=== PATIENT | female | born 1985 | race Caucasian/White ===

== ENCOUNTER → 2019-05-27 13:03 | Outpatient (BNVA) | payer OTHER, SELFPAY | PROVIDERS: Family Provider Family Medicine; Visit Provider Nurse Practitioner Women's Health | DX: O09.291 Supervision of pregnancy with other poor reproductive or obstetric history, first trimester (principal) | CPT/HCPCS: 76801 ==

== ENCOUNTER → 2019-06-14 14:43 | Outpatient (BNVA) | payer OTHER, SELFPAY | PROVIDERS: Family Provider Family Medicine; Visit Provider Obstetrics & Gynecology | DX: Z34.81 Encounter for supervision of other normal pregnancy, first trimester (principal); N89.8 Other specified noninflammatory disorders of vagina; O26.891 Other specified pregnancy related conditions, first trimester | CPT/HCPCS: 80053; 80307; 84315; 85027; 86592; 86762; 86803; 86850; 86900; 87210; 87340; 87491; 87591; 87806; 88175 ==

== ENCOUNTER → 2019-06-21 11:16 | Outpatient (BNVA) | payer OTHER, SELFPAY | PROVIDERS: Family Provider Family Medicine; Visit Provider Obstetrics & Gynecology | DX: O09.291 Supervision of pregnancy with other poor reproductive or obstetric history, first trimester (principal) | CPT/HCPCS: 82950 ==

== ENCOUNTER → 2019-08-09 10:06 | Outpatient (BNVA) | payer OTHER, SELFPAY | PROVIDERS: Family Provider Family Medicine; Visit Provider Obstetrics & Gynecology | DX: Z34.92 Encounter for supervision of normal pregnancy, unspecified, second trimester (principal); Z3A.20 20 weeks gestation of pregnancy | CPT/HCPCS: 76805 ==

== ENCOUNTER → 2019-09-30 14:37 | Outpatient (BNVA) | payer OTHER, SELFPAY | PROVIDERS: Family Provider Family Medicine; Visit Provider Nurse Practitioner Women's Health | DX: Z34.81 Encounter for supervision of other normal pregnancy, first trimester (principal) | CPT/HCPCS: 82950; 84315; 85027 ==

== ENCOUNTER → 2019-10-06 08:09 | Outpatient (BNVA) | payer OTHER, SELFPAY | PROVIDERS: Family Provider Family Medicine; Visit Provider Nurse Practitioner Women's Health | DX: R73.09 Other abnormal glucose (principal) | CPT/HCPCS: 82951; 82952 ==

== ENCOUNTER → 2019-11-25 15:52 | Outpatient (BNVA) | payer OTHER, SELFPAY | PROVIDERS: Family Provider Family Medicine; Visit Provider Obstetrics & Gynecology | DX: Z34.81 Encounter for supervision of other normal pregnancy, first trimester (principal) | CPT/HCPCS: 81000; 84315; 87081 ==

== ENCOUNTER → 2019-12-09 16:16 | Outpatient (BNVA) | payer OTHER, SELFPAY | PROVIDERS: Family Provider Family Medicine; Visit Provider Obstetrics & Gynecology | DX: Z11.59 Encounter for screening for other viral diseases (principal) | CPT/HCPCS: 84315; 87635 ==

== ENCOUNTER 2019-12-23 21:00 | Inpatient (IN) | payer OTHER, SELFPAY ==
[2019-12-23] VITALS (10 sets, daily range): BP systolic 100–135; BP diastolic 57–78; PULSE 62–80; RESP 16–18; TEMP 37; BMI 27.4
[2019-12-23 21:24] LABS: Nitrazine Paper, PH Negative
[2019-12-23 21:37] LABS: Basophils % 0.1 %; Eosinophils # 0.2 10^3/uL (0.0-0.8); Eosinophils % 1.9 %; Hematocrit 36.6 % (37.0-47.0); Hemoglobin 12.2 g/dL (11.5-15.3); Lymphocytes # 2.2 10^3/uL (0.8-4.8); Lymphocytes % 21.9 %; Mean Corpuscular HGB Conc 33.3 g/dL (30.0-36.0); Mean Corpuscular Hemoglobin 31.3 pg (28.0-34.0); Mean Corpuscular Volume 93.8 fL (81-99); Monocytes # 1.1 10^3/uL (0.2-0.9); Monocytes % 11.4 %; Neutrophils # 6.34 10^3/uL (1.8-7.7); Neutrophils % 64.2 %; Nucleated Red Blood Cells % 0 %; Platelet Count 226 10^3/cmm (130-400); Red Cell Distribution Width 11.8 % (12.1-15.1); White Blood Count 9.9 10^3/uL (4.0-10.0)
[2019-12-23] MEDS: dextrose 5%-lactated ringers 1,000 ML 125 ML IV (22:13)
[2019-12-23] MEDS: oxytocin 30 UNIT/500 ML BAG 600 UNIT IV (22:32)
--- NOTE | 2019-12-23 22:44 | P.PCNOB_ITS ---
Delivery Note: Date of delivery: December 23, 2019 Pre-delivery diagnoses: Term at 40-0/7 weeks gestation Post-delivery diagnoses: 1. Term at 40-0/7 weeks gestation, 2. Viable female Procedure: Spontaneous vaginal delivery Op report anesthesia: None Delivering Physician: Dr. Trevon Walker Estimated blood loss (mL): 100 Pre-Delivery Course: Patient is a 34-year-old white female 4, para 3-0-0-3 with an LMP of 03/18/2019 and an EDC of 12/23/2019 based on LMP and consistent with a 10-week ultrasound. She presented to labor and delivery at 40-0/7 weeks gestation. Patient presented to L&D at 20:50 on 12/23/2019 with complaint of contractions. She was found to be nuvia regularly and was 6 to 7 cm dilated. She continued to progress on her own and at 21:45 she was 8 cm dilated. Spontaneous rupture membranes of clear fluid had occurred at that time. She progressed to complete dilation by 22:16. heart tones were reassuring during the labor process. Delivery: Patient started pushing at 22:20 and delivered at 22:26 as a spontaneous vaginal delivery of an occiput anterior female over an intact perineum under no anesthesia. Following delivery of the infant's had one loop of nuchal cord was noted. The baby rapidly delivered atraumatically. was placed on the mother's abdomen where it was spontaneously crying and left in the care of the waiting nurses. Cord was clamped. It was cut by the reported father of the baby. Cord blood was obtained. Pitocin bolus was started. Placenta delivered intact by simple expression at 22:31. The cervix and vagina were palpated and noted to be intact. The labia were inspected and noted to be intact except for superficial abrasions which required no repair. Patient also had significant varicose veins of the labia. FINDINGS 1. Viable female infant weighing 7 lbs 6 oz (3345 g) with a length of 20 inches and Apgars of 9 at 1 minute and 9 at 5 minutes. 2. Three-vessel cord with 1 loop of nuchal cord noted. 3. Normal-appearing placenta with an eccentric cord insertion. Post-Delivery Status: Mother and were left to recover in satisfactory condition. A&P Assessment and plan (1) Vaginal delivery: Status: Acute Coding Level of Care Code Acute Certified Breastfeeding Educator for Chg Fwd Diagnoses Vaginal delivery O80
[2019-12-23] MEDS: methylergonovine 0.2 mg/mL INJ 1 mL IM (22:58)
--- NOTE | 2019-12-23 23:05 | PC.NURSE ---
[place] weighed at this time, EBL of 390 weighted out.
[2019-12-23] MEDS: ketorolac 30 mg/mL INJ IVP (23:09)
[2019-12-24] VITALS (14 sets, daily range): BP systolic 95–125; BP diastolic 52–77; PULSE 62–83; RESP 14–18; TEMP 36.4–37; O2SAT 97–99
[2019-12-24] MEDS: prenatal vitamin Capsule 1 CAP PO (08:34)
[2019-12-24] MEDS: ibuprofen 800 mg tablet PO ×2 (08:34→15:45)
[2019-12-24] MEDS: docusate sodium 100 mg Capsule PO (08:35)
[2019-12-24 11:58] LABS: Hematocrit 36.7 % (37.0-47.0); Hemoglobin 11.8 g/dL (11.5-15.3); Mean Corpuscular HGB Conc 32.2 g/dL (30.0-36.0); Mean Corpuscular Hemoglobin 31.1 pg (28.0-34.0); Mean Corpuscular Volume 96.6 fL (81-99); Mean Platelet Volume 10.2 fL (7.4-10.4); Platelet Count 220 10^3/cmm (130-400); Red Cell Distribution Width 11.8 % (12.1-15.1); White Blood Count 10.3 10^3/uL (4.0-10.0)
--- NOTE | 2019-12-24 19:47 | PC.NURSE ---
Dr. Walker in pts. room
--- NOTE | 2019-12-24 21:00 | PM.OBGYDC ---
Discharge Providers SPA EXPERIENCE COORDINATOR Date of Admission: 12/23/19 21:00 Date of Discharge: 12/24/19 Attending Provider at Admission: Trevon Walker MD Attending Provider at Discharge: Trevon Walker MD Diagnoses at Discharge Discharge Diagnosis (1) Vaginal delivery: Status: Acute Reason for Visit Reason for Visit: contractions Hospital Course Hospital Course Patient is a 34-year-old white female 4, now para 4-0-0-4 with an LMP 03/18/2019 and an EDC of 12/23/2019 based on LMP and consistent with a 10-week ultrasound, which placed her at 40-0/7 weeks gestation at time of admission. She presented to labor and delivery on 12/23/2019 at 20:50 with complaints of contractions. She was found to be 6 to 7 cm dilated and was nuvia regularly. She continued to progress on her own and had spontaneous rupture membranes at 21:45. She was 8 cm dilated at the time. She progressed to complete dilation by 22:16. She started pushing at 22:20 and delivered at 22:26 as a spontaneous vaginal delivery of an occiput anterior female infant over an intact perineum under no anesthesia. The baby weighed 7 lbs 6 oz with a length of 20 inches and Apgars of 9 at 1 minute and 9 at 5 minutes. She had superficial labial abrasions which required no repair. Mother and infant were left to recover in satisfactory condition. Day 1 Patient was without complaints. She was tolerating a regular diet without nausea or vomiting. She denied lightheadedness or dizziness with ambulation. She stated that her pain was well controlled. She denied shortness of breath or chest pains. She denied problems with urination. She stated that her bleeding had slowed. She was requesting to go home. Physical Exam: See below. Plan Discharge to home. Discharge instructions discussed with patient. Patient plans to use [id number] ibuprofen and Tylenol as needed for pain. She is being scheduled for a laparoscopic sterilization at approximately 5 to 6 weeks . Information Peripartum Data: Delivery Method: Vaginal Physical Exam Const: COMMON NORMALS: no acute distress, average body habitus, alert and well nourished GENERAL APPEARANCE: well developed ORIENTATION/CONSCIOUSNESS: Yes oriented to person, Yes oriented to place and Yes oriented to time Resp: COMMON NORMALS: normal respiratory effort and clear to auscultation bilaterally AUSCULTATION: clear to auscultation bilaterally Cardio: COMMON NORMALS: regular rate, regular rhythm, No gallops present (Cardio) and No rub (Cardio) RATE: regular rate RHYTHM: regular rhythm GI: COMMON NORMALS: Soft to palpation, non-tender, No hepatosplenomegaly present and no masses (Except for nontender uterus) AUSCULTATION: Yes normoactive bowel sounds PALPATION: Yes Soft to palpation, Yes No hepatosplenomegaly present and No Hernia present : EXTERNAL FEMALE EXAM: No Hernia present Extremity: COMMON NORMALS: no calf tenderness NARRATIVE EXTREMITY EXAM: Trace lower extremity edema bilaterally Neuro: SENSORIUM/ORIENTATION: Yes alert, Yes oriented to person, Yes oriented to place and Yes oriented to time Psych: COMMON NORMALS: normal affect MOOD & AFFECT: Yes euthymic mood Discharge Data Data Completed and Pending: Labs from last 24 hours 12/24/19 12/23/19 11:30 21:20 WBC 10.3 H 9.9 RBC 3.80 L 3.90 L Hgb 11.8 12.2 Hct 36.7 L 36.6 L MCV 96.6 93.8 MCH 31.1 31.3 MCHC 32.2 33.3 RDW 11.8 L 11.8 L Plt Count 220 226 MPV 10.2 10.0 Neut % (Auto) 64.2 Lymph % (Auto) 21.9 [place] % (Auto) 11.4 Eos % (Auto) 1.9 Baso % (Auto) 0.1 Neut # (Auto) 6.34 Lymph # (Auto) 2.2 [place] # (Auto) 1.1 H Eos # (Auto) 0.2 Baso # (Auto) 0.0 Nucleated RBC % (a uto) 0 Nucleated RBCs # 0.0 Vitals: Last Vital Signs Temp 98.0 F 12/24/19 16:45 Pulse 76 12/24/19 16:45 Resp 18 12/24/19 16:45 BP 119/76 12/24/19 16:45 Pulse Ox 98 12/24/19 16:45 Discharge Plan Discharge Patient Disposition: Home Condition: Stable Prescriptions: Continued hydrocortisone [Preparation H Hydrocortisone] 1 % cream 1 applic TOPICAL TID PRNRF: 0 sumatriptan succinate [Imitrex] 25 mg tablet 25 mg PO Q2H PRN (Reason: Migraine Headache) RF: 0 Gummies 400 mcg-35 mg- 25 mg-5 mg tablet,chewable 1 tab PO DAILY RF: 0 fluticasone propionate 50 mcg/actuation spray,suspension 1 spray INTRANASAL DAILY RF: 0 Discontinued famotidine [Pepcid] 20 mg tablet 20 mg PO BID RF: 0 magnesium hydroxide 311 mg tablet,chewable See Rx Instructions PO .COMPLEX RF: 0 Discharge Orders: Discharge Order (Routine); Ordered 12/24/19 Ordered By: Trevon Walker Referrals: Trevon Walker MD [Physician] - 6 Weeks ( exam) Discharge Diet: Regular Discharge Activity: Resume usual activity Patient Instructions: , Lanolin (On the skin), How to Hold and Breastfeed Your Baby (GEN), and Nipple Soreness (GEN), Breast Care for the Breast Feeding Mother (GEN), Caring for Your Breastfed Baby (GEN), Bleeding (GEN), Sitz Bath (GEN), OB Discharge Report, OB Food/Drug Interaction Guide, OB Vaginal Deliveries - [facility] Discharge Attestations SPA EXPERIENCE COORDINATOR Time Spent in Discharge Care*: less than 30 min Coding Level of Care Code Acute Bilingual Kindergarten Teacher for Chg Fwd Diagnoses Vaginal delivery O80
== END 2019-12-24 23:25 | disposition home or self-care (01) | DRG 807 ==
LOC: OBGYN 12-24 08:08 → OPOB 12-24 08:55
PROVIDERS: Admitting Provider Obstetrics & Gynecology; Family Provider Family Medicine; Visit Provider Obstetrics & Gynecology
DX: O62.3 Precipitate labor (principal); Z37.0 Single live birth; Z3A.40 40 weeks gestation of pregnancy; O69.81X0 Labor and delivery complicated by cord around neck, without compression, not applicable or unspecified
CPT/HCPCS: 12345; 36415; 59409; 83986; 84315; 85025; 85027; 96372; 96375; 98960; 99211; J1885; J2210

== ENCOUNTER → 2020-02-02 17:57 | Outpatient (BNVA) | payer OTHER, SELFPAY | PROVIDERS: PCP Family Medicine; Visit Provider Obstetrics & Gynecology | DX: Z20.828 Contact with and (suspected) exposure to other viral communicable diseases (principal); Z11.59 Encounter for screening for other viral diseases | CPT/HCPCS: 87635 ==

== ENCOUNTER → 2020-03-01 15:08 | Outpatient (BNVA) | payer OTHER, SELFPAY | PROVIDERS: PCP Family Medicine; Visit Provider Obstetrics & Gynecology | DX: Z01.812 Encounter for preprocedural laboratory examination (principal); Z30.430 Encounter for insertion of intrauterine contraceptive device | CPT/HCPCS: 81025 ==

== ENCOUNTER → 2022-02-19 09:00 | Outpatient (BNVA) | payer OTHER, SELFPAY | PROVIDERS: PCP Family Medicine; Visit Provider Nurse Practitioner Women's Health | DX: Z12.4 Encounter for screening for malignant neoplasm of cervix (principal); R35.0 Frequency of micturition | CPT/HCPCS: 87086; 87624 ==

== ENCOUNTER → 2022-03-08 15:12 | Outpatient (BNVA) | payer OTHER, SELFPAY | PROVIDERS: PCP Family Medicine; Visit Provider Nurse Practitioner Women's Health | DX: N93.9 Abnormal uterine and vaginal bleeding, unspecified (principal); Z97.5 Presence of (intrauterine) contraceptive device | CPT/HCPCS: 76830 ==